=== PATIENT | female | born 1960 | race Caucasian/White ===

== ENCOUNTER 2017-01-23 08:36 | Emergency (ER) | payer BC ==
[2017-01-23 08:48] VITALS: BP 114/68
--- NOTE | 2017-01-23 08:54 | UC ---
Throat Pain/Nasal Chin HPI - HPI Summary HPI Summary: "I'm pretty sure I have a sinus infection" Patient c/o of congestion, bilateral ear pain, and tooth pain worsening for 1-2 day. [ End ] - History of Current Complaint Chief Complaint: UCGeneralIllness Stated Complaint: SINUS,EAR PAIN Time Seen by Provider: 01/23/17 08:51 Hx Obtained From: Patient Hx Last Menstrual Period: Uterine Ablation 5 yrs ago ?: No Onset/Duration: Gradual Onset Severity: Moderate Cough: Productive Associated Signs & Symptoms: Positive: Sinus Discomfort, Nasal Discharge - Epiglottits Risk Factors Epiglottis Risk Factors: Negative - Allergies/Home Medications Allergies/Adverse Reactions: Allergies Allergy/AdvReac Type Severity Reaction Status Date / Time Prochlorperazine Allergy Severe See Comment Verified 01/23/17 08:48 [From Compazine] PMH/Surg Hx/FS Hx/Imm Hx Previously Healthy: Yes Endocrine History Of: Denies: Diabetes, Thyroid Disease Cardiovascular History Of: Denies: Cardiac Disorders, Hypertension Respiratory History Of: Denies: COPD, Asthma GI/ History Of: Denies: Ulcer Cancer History Of: Denies: Breast Cancer - Surgical History Surgical History: Yes Surgery Procedure, Year, and Place: Right Shoulder 2010, Right pinky surgery 2010,. 2 C Sections, Right ACL repair 13 yrs ago - Family History Known Family History: Positive: None - Social History Occupation: Employed Full-time Lives: With Family Alcohol Use: Weekly Alcohol Amount: weekends Substance Use Type: None Smoking Status (MU): Never Smoked Tobacco Review of Systems Constitutional: Negative Skin: Negative Eyes: Negative ENT: Dental Pain, Sore Throat, Ear Ache, Nasal Discharge, Other - dental pain upper jaw Respiratory: Negative Cardiovascular: Negative Gastrointestinal: Negative Genitourinary: Negative Motor: Negative Neurovascular: Negative Musculoskeletal: Negative Neurological: Negative Psychological: Negative All Other Systems Reviewed And Are Negative: Yes Physical Exam Triage Information Reviewed: Yes Appearance: Well-Appearing, No Pain Distress, Well-Nourished Vital Signs: Initial Vital Signs Temp 98.1 F 01/23/17 08:42 Pulse 90 01/23/17 08:42 Resp 16 01/23/17 08:42 BP 114/68 01/23/17 08:42 Pulse Ox 96 01/23/17 08:42 Vital Signs Reviewed: Yes Eye Exam: Normal ENT Exam: Normal ENT: Positive: Nasal congestion, Nasal drainage, TM dull, Other: - maxillary / ethmoid sinus pressure / tenderness to palpation. Negative: Tonsillar swelling , Tonsillar exudate Dental Exam: Normal Neck exam: Normal Neck: Positive: 1 Respiratory Exam: Normal Cardiovascular Exam: Normal Abdominal Exam: Normal Musculoskeletal Exam: Normal Neurological Exam: Normal Psychological Exam: Normal Skin Exam: Normal Throat Pain/Nasal Course/Dx - Course Course Of Treatment: viral at this time, see discharge notes - Differential Dx/Diagnosis Differential Diagnosis/HQI/PQRI: Pharyngitis, Sinusitis, URI Provider Diagnoses: sinusitis Discharge - Discharge Plan Condition: Good Disposition: HOME Prescriptions: Amoxicillin/Clavulanate TAB* [Augmentin TAB 875*] 875 mg PO BID #20 tab Azelastine 0.15% NASAL(NF) [Astepro 0.15% NASAL (NF)] 2 spray NASAL BID #1 spray Patient Education Materials: Sinusitis (ED) Referrals: Marvin Soria MD [Primary Care Provider] - 3 Days Additional Instructions: START NETTI POT IN PM, ASTEPRO SPRAY IN AM , CLARITIN IN AM AND IF SYMPTOMS WORSEN OR PERSIST FOR ANOTHER 2-3 DAYS THEN YOU MAY START AUGMENTIN (and also start probiotics to reduce side effects like diarrhea / colitis of antibiotics)
== END 2017-01-23 09:17 | disposition home or self-care (01) ==
LOC: UCCORT 08:36
DX: J32.9 Chronic sinusitis, unspecified (principal)
CPT/HCPCS: 99212; G0463

== ENCOUNTER 2019-01-16 07:33 | Emergency (ER) | payer BC ==
--- OUTSIDE RECORDS SUMMARY | 2019-01-16 07:39 | XMS REPORT | Continuity of Care Document ---
:1960 Author Organization [facility] Address [address], [place] [id number] Phone Care Team Providers Name Role Phone Anil Man MD Unavailable Unavailable Allergies, Adverse Reactions, Alerts Substance Reaction Status PROCHLORPERAZINE MALEATE Active PROCHLORPERAZINE EDISYLATE Active Medications Medication Instructions Dosage Effective Status Comments Dates (start - stop) diclofenac sodium 75 take 1 tablet - Active mg tablet,delayed (75MG) by oral release route 2 times every day prednisone 5 mg take 1 Tablet by - Active tablet oral route 2 times every day on bad days. cyclobenzaprine 5 mg take 1 tablet by 5 MG - Active tablet oral route every bedtime VALTREX (unknown take 1 tablet by Not Available - Active strength) oral route every day as needed diclofenac sodium 75 take 1 tablet - No Longer mg tablet,delayed (75MG) by oral Active release route 2 times every day Problems Condition Effective Dates (start Clinical Status Comments - stop) Ankylosing spondylitis of multiple sites in spine Carpal tunnel syndrome, bilateral upper limbs Ankylosing spondylitis of multiple sites in spine Ankylosing spondylitis of multiple sites in spine Other oil heaterman drug therapy Ankylosing spondylitis of multiple sites in spine High risk drug - Active Mapped from [facility] Chronic monitoring status Conditions table on 03/03/2015 by the ICD9 to SNOMED Bulk Mapping Utility. 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 Onset date 08/26/2014; last addressed on 08/26/2014. Ankylosing spondylitis - Active Mapped from [facility] Chronic Conditions table on 12/31/2014 by the ICD9 to SNOMED Bulk Mapping Utility. The mapped diagnosis code was Ankylosing spondylitis, 720.0, added by Anil Man MD, with responsible provider Anil Man MD. Onset date 04/30/2013; last addressed on 08/26/2014. Procedures Procedure Date No information Results Test Name Date and Time Measure Units Reference Range Abnormal Flag Status Comments No information Advance Directives Directive Yes / No Effective Date File Name No information Encounters Encounter Practice Location Reason(s) Diagnoses Date Provider Providers Description For Visit Copied on Encounter Arthritis Arthritis Donovan BALLARD [facility]. [facility] [place], [facility] [place], [place], [place], [place], [id number], [place], [place]. [id number], tel:[phone] tel:[phone] Arthritis Arthritis Donovan BALLARD [facility] [place], [facility] [place], [place], [place], [place], [id number], [place], [place]. [id number], tel:[phone] [place] [phone] tel:[phone] Arthritis Arthritis Ankylosing Donovan BALLARD [facility] spondylitis 2- Anil. [facility] sites in [place], [facility] spineCarpal [place], [place], tunnel [place], [place], syndrome, [id number], [place], bilateral [place]. [id number], upper limbs tel:[phone] [place] [phone] tel:[phone] Arthritis Arthritis Ankylosing May-2 Donovan BALLARD [facility] spondylitis 0- Anil. 5794 Provider: [facility] 8 [facility], [facility] sites in [place], Estella BALLARD, [facility] spine [place], [address], [place], [address], [place], [id number], [place], [place], [place], [address]. [id number], tel:[phone] tel:[phone] tel:[phone] Arthritis Arthritis Ankylosing Chato-0 Donovan BALLARD Referring [facility] spondylitis 5 Anil. 5794 Provider: [facility] 7 [facility], [facility] [facility] sites in [place], Estella BALLARD, [facility], [address] [place] [address], skilled nursing [place], [place], [place], drug therapy [id number], [place], [place], [place], [address]. [id number], tel:[phone] tel:[phone] [place] [phone] tel:[phone] Arthritis Arthritis Ankylosing Mar-2 Donovan BALLARD Referring [facility] spondylitis 9 Anil. 5794 Provider: [facility] 6 [facility], [facility] sites in [place], Estella BALLARD, [facility], [address] [place] [address], [facility], [id number], [place], [place], [place], [address]. [id number], tel:[phone] tel:[phone] tel:[phone] Arthritis Arthritis Nov-2 Donovan BALLARD Referring [facility] 7 Anil. 5794 Provider: [facility] 3 [facility], [address] [facility] Estella Solomon MD, [facility], [address] [place] [address], [place], [place], [id number], [place], [place], [place], [address]. [id number], tel:[phone] tel:[phone] [place] [phone] tel:[phone] Arthritis Arthritis May-0 Donovan BALLARD Referring [facility] 4- Anil. 5794 Provider: [facility] 1 [facility] Marvin [facility], [address] [facility] Estella Solomon MD, [facility], [address] [place] [address], [facility], [id number], [place], [place], [place], [address]. [id number], tel:[phone] tel:[phone] tel:[phone] Family History Family Member Diagnosis Age At Onset Mother arthritis Immunizations Vaccine Date Status Comments No information Payers Payer name Insurance type Covered green party ID Authorization(s) Em [id number] Social History Type Description Quantity Date Captured Comments Sex Female Vital Signs Date / Height Weight BMI Pulse Blood Temperature Respiratory Body Head BMI Pulse Inhaled Time: Rate Pressure Rate Surface Circumference percentile Ox Ox Area No information Chief Complaint And Reason For Visit No information Reason For Referral Reason For Referral No information Plan Of Treatment Date Type Action Status Referral Referred To: ordered Adalid Murrell [address] [place], [phone] Ordered: Referrals: Allopathic & Osteopathic Physicians : Orthopaedic Surgery. Adalid Murrell Appointment date/timeframe: 09/13/2018 Appointment Janell Pires BOOKED History Of Present Illness Encounter Date Complaint History Of Present Illness No information Functional Status Date Functional Assessment No information Medications Administered Medication Instructions Dosage Effective Dates (start - stop) Status Comments No information Instructions Date Instruction Additional Information Call if problems develop.
[2019-01-16 07:44] VITALS: BP 131/75
--- NOTE | 2019-01-16 08:01 | UC ---
Ear Complaint HPI - HPI Summary HPI Summary: GRADUAL ONSET OF RIGHT EAR PAIN 2 DAYS AGO. NOW HAS SLIGHT RIGHT SIDED SCRATCHY THROAT. NO COUGH/CONGESTION OR URI SX. NO FEVER. NO HEARING LOSS OR DRAINAGE FROM THE EAR. - History of Current Complaint Chief Complaint: UCEar Stated Complaint: EAR ACHE /SORE THROAT Time Seen by Provider: 01/16/19 07:42 Hx Obtained From: Patient Hx Last Menstrual Period: Uterine Ablation 5 yrs ago Onset/Duration: Gradual Onset, Lasting Days, Still Present Severity Initially: Moderate Severity Currently: Moderate Pain Intensity: 6 Pain Scale Used: 0-10 Numeric Aggravating Factors: Nothing Alleviating Factors: Nothing Associated Signs/Symptoms: Negative: Discharge, Hearing Loss, Foreign Body Sensation, Trauma to Ear, URI Symptoms - Allergies/Home Medications Allergies/Adverse Reactions: Allergies Allergy/AdvReac Type Severity Reaction Status Date / Time prochlorperazine Allergy See Comment Verified 01/16/19 07:45 [From Compazine] PMH/Surg Hx/FS Hx/Imm Hx - Additional Past Medical History Additional PMH: ARTHRITIS, VERTIGO - Surgical History Surgical History: Yes Surgery Procedure, Year, and Place: Right Shoulder 2010, Right pinky surgery 2010,. 2 C Sections, Right ACL repair 13 yrs ago - Family History Known Family History: Positive: None - Social History Alcohol Use: Weekly Alcohol Amount: weekends Substance Use Type: None Smoking Status (MU): Never Smoked Tobacco Review of Systems All Other Systems Reviewed And Are Negative: Yes Constitutional: Positive: Negative ENT: Positive: Sore Throat, Ear Ache. Negative: Nasal Discharge Respiratory: Positive: Negative. Negative: Cough Cardiovascular: Positive: Negative Gastrointestinal: Positive: Negative Physical Exam Triage Information Reviewed: Yes Appearance: Well-Appearing, No Pain Distress, Well-Nourished Vital Signs: Initial Vital Signs Temp 98.3 F 01/16/19 07:40 Pulse 72 01/16/19 07:40 Resp 20 01/16/19 07:40 BP 131/75 01/16/19 07:40 Pulse Ox 99 01/16/19 07:40 Vital Signs Reviewed: Yes Eyes: Positive: Conjunctiva Clear ENT: Positive: Hearing grossly normal, Pharynx normal, TMs normal - RIGHT EAC OCCLUDED WITH CERUMEN Neck: Positive: Supple, Nontender, No Lymphadenopathy Respiratory Exam: Normal Cardiovascular Exam: Normal Abdomen Description: Positive: Soft Musculoskeletal: Positive: No Edema Neurological: Positive: Alert Psychological: Positive: Age Appropriate Behavior Skin: Negative: Rashes Ear Complaint Course/Dx - Course Course Of Treatment: RIGHT EAR CANAL SUCCESSFULLY IRRIGATED BY RN. TM AND EAR CANAL SEEN TO BE NORMAL. NO INDICATION FOR ACUTE INTERVENTION TODAY. PATIENTS DISCOMFORT WILL HOPEFULLY IMPROVE NOW THAT SHE IS FREE OF CERUMEN. SORE THROAT MAY BE DUE TO DEVELOPING MILD VIRAL ILLNESS. EXAM NORMAL. SHE WILL FOLLOW-UP IF NOT IMPROVING EXPECTED OVER THE NEXT COUPLE OF WEEKS. - Differential Dx/Diagnosis Provider Diagnosis: Impacted cerumen, right ear Discharge - Sign-Out/Discharge Documenting (check all that apply): Patient Departure All imaging exams completed and their final reports reviewed: No Studies - Discharge Plan Condition: Stable Disposition: HOME Patient Education Materials: Cerumen Impaction (ED) Referrals: Marvin Soria MD [Primary Care Provider] - If Needed Additional Instructions: RIGHT EAR SUCCESSFULLY IRRIGATED TODAY. YOUR EARDRUM AND EAR CANAL BOTH LOOK NORMAL. NO INDICATION FOR ANY ANTIBIOTICS TODAY. YOU MAY BE DEVELOPING A MILD VIRAL ILLNESS WHICH COULD EXPLAIN YOUR SORE THROAT. AGAIN NO ACUTE INTERVENTION INDICATED TODAY. SEEK FOLLOW-UP IF YOU ARE NOT IMPROVING OVER THE NEXT WEEK OR SO. - Billing Disposition and Condition Condition: STABLE Disposition: Home
== END 2019-01-16 08:10 | disposition home or self-care (01) ==
LOC: UCEAST 07:33
DX: H61.21 Impacted cerumen, right ear (principal); J02.9 Acute pharyngitis, unspecified; Z88.8 Allergy status to other drugs, medicaments and biological substances
CPT/HCPCS: 99212; G0463